=== PATIENT | female | born 1930 | race Caucasian/White ===

== ENCOUNTER 2019-08-23 12:49 | Inpatient (IN) | payer MEDICARE, OTHER ==
[~2019-08-23] VITALS: Ht 157.5 cm; Wt 56.2 kg
--- NOTE | 2019-08-23 13:05 | NUR ---
PT BIB PA WITH A C/O LT HIP PAIN S/P UNWITTNESSED FALL AT FACILITY. PT HIS HER LLE BENT AND C/O PAIN WITH STRAIGHTENING. PT HAS A DEFORMITY AT LT HIP WITH SLIGHT ECCHYMOSIS NOTED. PT WAS PLACED ON THE MONITOR AND POX. PT IS IN A GOWN.
--- NOTE | 2019-08-23 13:13 | NUR ---
18G IV STARTED IN LAC. BLOOD WAS DRAWN AND SENT TO LAB.
--- NOTE | 2019-08-23 13:19 | NUR ---
DR GUPTA CALLED RE: THIS PT.
[2019-08-23 13:29] LABS: BASOPHILS # (AUTO) 0.1 /CMM (0.0-0.2); BASOPHILS % (AUTO) 1.2 % (0.0-2.0); EOSINOPHILS % (AUTO) 1.7 % (0.0-6.0); HEMATOCRIT 34 % (33-45); HEMOGLOBIN 11.2 g/dL (11.5-14.8); LYMPHOCYTES % (AUTO) 12.6 % (20.0-44.0); MEAN CORPUSCULAR HGB CONC 33 g/dl (31.0-36.0); MEAN CORPUSCULAR VOLUME 92 fL (82-100); MONOCYTES # (AUTO) 0.6 /CMM (0.1-1.30); MONOCYTES % (AUTO) 6.9 % (2.0-12.0); NEUTROPHILS # (AUTO) 6.4 /CMM (1.8-8.9); NEUTROPHILS % (AUTO) 77.6 % (43.0-81.0); PLATELET COUNT (AUTO) 399 /CMM (150-450); RED BLOOD CELL COUNT(AUTO) 3.72 MIL/uL (4.0-5.2); WHITE BLOOD COUNT (AUTO) 8.3 K/uL (4.3-11.0)
[2019-08-23 13:38] LABS: CALCIUM, SERUM 8.7 mg/dL (8.5-10.1); CREATININE 0.8 mg/dL (0.6-1.3); POTASSIUM 3.7 mmol/L (3.5-5.1)
[2019-08-23 13:44] LABS: ALBUMIN 3.3 g/dL (3.4-5.0); BILIRUBIN,DIRECT 0.1 mg/dL (0.0-0.2); BILIRUBIN,TOTAL 0.6 mg/dL (0.2-1.0); TOTAL PROTEIN, SERUM 6.6 g/dL (6.4-8.2)
[2019-08-23] MEDS ORDERED: ONDANSETRON HCL/PF 4 MG/2 ML VIAL ONE (14:10)
[2019-08-23] MEDS ORDERED: MORPHINE SULFATE INJ 2 MG/ML DISP.SYRIN ONE ×2 (14:10→19:52)
--- NOTE | 2019-08-23 14:12 | NUR ---
PT REC'D MEDICATION ORDERED.
--- NOTE | 2019-08-23 14:18 | NUR ---
PERI INSPECTOR RETURNED MATERIALS, AT THE BEDSIDE FOR XRAY
--- NOTE | 2019-08-23 14:18 | NUR ---
EKG IN PROGRESS AT THE BEDSIDE.
[2019-08-23] MEDS ORDERED: ONDANSETRON HCL/PF 4 MG/2 ML VIAL IVP ONE (14:30)
[2019-08-23] MEDS ORDERED: MORPHINE SULFATE INJ 2 MG/ML DISP.SYRIN IV ONE ×2 (14:30→20:00)
--- NOTE | 2019-08-23 14:47 | NUR ---
CALLED OFFICE IF JASON KHAN MD
--- NOTE | 2019-08-23 14:50 | NUR ---
PER ADMITTING PT HAS [facility] INSURANCE, SPOKE TO DR CANDY ZAVALETA TO TRANSFER PT
--- NOTE | 2019-08-23 14:57 | NUR ---
MED RECON DONE, PT CAME FROM [facility] PHONE #[phone] FAX [phone]
[2019-08-23] MEDS ORDERED: ACET325T53 PO (15:00)
[2019-08-23] MEDS ORDERED: QUET25TA PO (15:00)
--- NOTE | 2019-08-23 15:39 | NUR ---
ROOM ASSIGNED= 310-1
--- NOTE | 2019-08-23 16:05 | NUR ---
REPORT GIVEN TO ALFIE. PT AWAITING TRANSFER TO FLOOR.
--- NOTE | 2019-08-23 16:40 | NUR ---
GAVE MOVESHEET TO ADMITTING FOR INSURANCE AUTH Addendum: 08/23/19 at 1951 by VERO GAVE *CLINICALS* TO ADMITTING
--- NOTE | 2019-08-23 17:00 | NUR ---
MONAE INSERTED. APPROX 10ML YELLOW, CLOUDY, URINE OUTPUT NOTED.
--- NOTE | 2019-08-23 17:10 | NUR ---
PT APPEARS TO BE RESTING COMFORTABLY WITH NO S/S OF PAIN OR DISTRESS.
--- NOTE | 2019-08-23 17:18 | NUR ---
SPOKE TO COLORING CHECKER BASIL. LEFT A CONTACT # [phone]. AWAITING OTHRO CONSULT CALL BACK.
--- NOTE | 2019-08-23 17:18 | NUR ---
PER THEA GRACIA, MUST OBTAIN ORTHO CONSULT TO R/O SURGERY BEFORE ADMITTING PT TO [facility] UNDER DR CASAREZ
--- NOTE | 2019-08-23 17:19 | NUR ---
PAGED DR YE
--- NOTE | 2019-08-23 17:35 | NUR ---
PT REC'D WARM BLANKETS. PT IS C/O HIP PAIN.
--- NOTE | 2019-08-23 17:47 | NUR ---
CALLING DR GUPTA RE: PT BEING ADMITTED HERE.
--- NOTE | 2019-08-23 18:04 | NUR ---
CALLED DR CASAREZ, , LEFT VOICEMAIL
--- NOTE | 2019-08-23 18:08 | NUR ---
DR CASAREZ SPEAKING WITH DR RONDON, WILL ACCEPT PT ADMISSION UPON [facility] AUTHORIZATION ONLY
--- NOTE | 2019-08-23 18:10 | NUR ---
DR RONDON IS SPEAKING TO DR CASAREZ.
--- NOTE | 2019-08-23 18:13 | NUR ---
SPOKE TO HEAD BUTLER BASIL, WAS INFORMED THAT PATIENT WILL BE TRANSFERED TO [facility].
--- NOTE | 2019-08-23 18:29 | NUR ---
URINE SAMPLE OBTAINED AND SENT TO LAB.
[2019-08-23 18:34] LABS: APPEARANCE,URINE Cloudy (CLEAR); BILIRUBIN,URINE Negative (NEGATIVE); BLOOD, URINE Moderate Ery/uL (NEGATIVE); COLOR,URINE Yellow (YELLOW); KETONES,URINE Negative (NEGATIVE); LEUKOCYTE ESTERASE ,URINE Large (NEGATIVE); NITRITE, URINE Positive (NEGATIVE); PH,URINE 6.5 (5.0-8.0); PROTEIN,URINE 100 mg/dl (NEGATIVE); UGLUCOSE Negative (NEGATIVE)
[2019-08-23 19:02] LABS: BACTERIA,URINE 3+ /HPF (None Seen); SQUAMOUS EPITHELIAL CELL,UR Few /HPF (None Seen); WBC,URINE 51-80 /HPF (0-3)
[2019-08-23 19:03] LABS: MUCUS,URINE Many /LPF (None Seen)
--- NOTE | 2019-08-23 19:20 | NUR ---
PT ACCEPTED TO [facility] BY DR CLEARY, ROOM 67. # FOR REPORT [phone]. [facility] ETA 60-90 MINUTES.
--- NOTE | 2019-08-23 19:32 | NUR ---
PT WAS PULLING OFF MONITOR LEADS AND PULSE OX. PT'S GOWN WAS SLIGHTLY DAMP SO PT WAS CHANGED. NEW DIAPER PLACED ON PT AND CHUX PUT UNDER THE PT. PT WAS ADJUSTED IN BED AND PUT BACK ON THE MONITOR.
--- NOTE | 2019-08-23 19:40 | NUR ---
CALLED [facility], PAGED FLORENCIA
--- NOTE | 2019-08-23 19:42 | NUR ---
CALLING REPORT TO [facility]. PT IS GOING TO ROOM #67
--- NOTE | 2019-08-23 19:50 | NUR ---
REPORT GIVEN TO TIESHA WILKINSON AT [facility]. PT IS GOING TO EMG [address], [address].
[2019-08-23] MEDS ORDERED: CEFTRIAXONE 1GM BAG (ER ONLY) 50 ML IV ONE ×2 (19:52→20:00)
--- NOTE | 2019-08-23 19:57 | NUR ---
PT IS NOW GOING TO MS 310-1. ACCEPTED BY DR DON.
--- NOTE | 2019-08-23 19:58 | NUR ---
CALLED LAB RE: BLOOD CULTURE DRAW.
--- NOTE | 2019-08-23 19:59 | NUR ---
CALLING REPORT TO MS NURSE.
--- NOTE | 2019-08-23 20:03 | NUR ---
WILL CALL BACK FOR REPORT.
--- NOTE | 2019-08-23 20:05 | NUR ---
PER MITRA RN/CHG 3RD FLOOR. PT CAN BE BROUGHT UP AND BEDSIDE REPORT GIVEN.
--- NOTE | 2019-08-23 20:07 | NUR ---
MS RN OPEN NOTES RECEIVED PATIENT VIA GURSHYLA. PATIENT ORIENTED TO ROOM. ON RA, NO SOB/ ACUTE RESPIRATORY DISTRESS NOTED. NO COMPLAINTS OF PAIN AT THE MOMENT. BED IS IN LOWEST LOCKED POSITION WITH SIDE RAILS UP X3, SEMI FOWLERS. CALL LIGHT IS WITHIN REACH. WILL CONTINUE TO MONITOR.
[2019-08-23] MEDS ORDERED: Z GUARD REMEDY 2 OZ OINT TP PRN (20:30)
[2019-08-23] MEDS ORDERED: ONDANSETRON HCL/PF 4 MG/2 ML VIAL IVP PRN (20:30)
[2019-08-23] MEDS ORDERED: MAG HYDROX/AL HYDROX/SIMETH 30 ML UDC PO PRN (20:30)
[2019-08-23] MEDS ORDERED: ACETAMINOPHEN 325 MG TABLET PO PRN (20:30)
[2019-08-23] MEDS ORDERED: MAGNESIUM HYDROXIDE 30 ML UDC PO PRN (20:30)
[2019-08-23 21:00] VITALS: BP 150/87
--- NOTE | 2019-08-23 21:00 | NUR ---
RN NOTES VTE SCORE >5, CHEMICAL PROPHYLAXIS NOT ORDERED UPON ADMISSION. PER DR DON'S NOTES, "Anemia: Likely acute on chronic with expected blood loss from this injury, monitor hemoglobin, transfuse as needed." WILL CONTINUE TO MONITOR AND INFORM DAY SHIFT.
--- NOTE | 2019-08-23 21:40 | NUR ---
RN NOTES PATIENT REFUSED SKIN ASSESSMENT ON BACK AND SACRUM. PATIENT WAS IN PAIN DUE TO FRACTURE AND WAS CONFUSED. HOWEVER WAS ABLE TO DO SKIN ASSESSMENT ON LEGS AND ARMS.. TOOK PICTURES AND ADDED TO CHART.
[2019-08-23 22:00] VITALS: BP 150/87
[2019-08-24] MEDS: MORPHINE SULFATE INJ 2 MG/ML DISP.SYRIN IV PRN (01:38)
[2019-08-24 06:27] LABS: HEMOGLOBIN 9.8 g/dL (11.5-14.8); WHITE BLOOD COUNT (AUTO) 7.3 K/uL (4.3-11.0)
[2019-08-24 06:28] LABS: BASOPHILS % (AUTO) 0.6 % (0.0-2.0); EOSINOPHILS % (AUTO) 0.8 % (0.0-6.0); HEMATOCRIT 30 % (33-45); LYMPHOCYTES % (AUTO) 13.8 % (20.0-44.0); MEAN CORPUSCULAR HGB CONC 33 g/dl (31.0-36.0); MEAN CORPUSCULAR VOLUME 91 fL (82-100); MONOCYTES # (AUTO) 0.5 /CMM (0.1-1.30); MONOCYTES % (AUTO) 6.7 % (2.0-12.0); NEUTROPHILS # (AUTO) 5.7 /CMM (1.8-8.9); NEUTROPHILS % (AUTO) 78.1 % (43.0-81.0); PLATELET COUNT (AUTO) 372 /CMM (150-450)
--- NOTE | 2019-08-24 07:06 | NUR ---
RN CLOSE NOTES PATIENT IS LAYING IN BED. A/O X1. ON RA, SATURATING AT 97%, NO SOB/ ACUTE RESPIRATORY DISTRESS NOTED. NO COMPLAINTS OF PAIN AT THE MOMENT. IV ON L AC IS PATENT AND INTACT. BED IS IN LOWEST LOCKED POSITION WITH SIDE RAILS UP X3, SEMI FOWLERS. CALL LIGHT IS WITHIN REACH. WILL ENDORSE TO AM NURSE.
[2019-08-24 07:45] LABS: CALCIUM, SERUM 8.3 mg/dL (8.5-10.1); CREATININE 0.8 mg/dL (0.6-1.3); POTASSIUM 4.3 mmol/L (3.5-5.1)
[2019-08-24 08:00] VITALS: BP 149/79
--- NOTE | 2019-08-24 08:30 | NUR ---
dr. christiansen in to see pt. npo after breakfast.
[2019-08-24] MEDS: QUETIAPINE FUMARATE 25 MG TABLET PO SCH (09:00)
[2019-08-24 09:26] LABS: THYROID STIMULATING HORMONE 1.737 uIU/mL (0.358-3.74)
[2019-08-24] MEDS: IV NS 0.9% 1,000 ML IV PRN ×2 (09:51→18:04)
[2019-08-24] MEDS: NITROGLYCERIN 30 GM TUBE TP SCH ×2 (09:52→20:56)
[2019-08-24] MEDS: PANTOPRAZOLE 40 MG VIAL IV SCH (09:52)
[2019-08-24 10:06] LABS: PHOSPHORUS 4.4 mg/dL (2.5-4.9)
--- NOTE | 2019-08-24 10:54 | NUR ---
WOUND CARE CONSULT: PT PRESENTS WITH DISCOLORATION TO UPPER AND LOWER EXTREMITIES AND SACRAL STAGE 2 ULCER WHICH EXTENDS TO RT BUTTOCK, PRESENT ON ADMISSION. RECOMMENDATIONS MADE FOR SKIN PROTECTION AND WOUND CARE. DISCUSSED WITH NURSING STAFF. ISOFLEX LOW AIRLOSS BED TO BE PLACED WHEN AVAILABLE. PT NOTED TO BE RUBBING HER HEELS ON BED. BLANCHABLE REDNESS NOTED TO HEELS. PILLOW PLACED FOR HEEL FLOATING. PT IS AGITATED AND COMBATIVE AT TIMES. WILL SEE PRN. IN AGREEMENT WITH PLAN OF CARE. CURRENT NOLVIA SCORE IS 13.
[2019-08-24] MEDS ORDERED: HYDROGEL DRESSING 90 GM TUBE TP PRN (11:00)
--- NOTE | 2019-08-24 11:30 | NUR ---
dr. vargas contacted with elevated troponin.
--- NOTE | 2019-08-24 12:03 | NUR ---
SW Consult was requested by to check the pts DPOA. Pt is a 89 year old female who has dementia and was admitted for a urinary tract infection and a fractured femur. STEFAN called the number of the person of contact on the facesheet and spoke to Jagjit Laws ([phone]) who stated that he is the pts DPOA. He stated that he only has power of title attorney over the pts finances and does not have any ability to make decisions regarding her medical care. STEFAN stated that she would like to request the paperwork but he stated that he was too busy at the moment at work. SW provided him with the fax number for when he is more available.
--- NOTE | 2019-08-24 12:45 | NUR ---
REPORT PER JUS PERLA PT. TO POSSIBLY BE TRANSFERRED TO ANOTHER ACUTE FACILITY FOR SURGERY.REMAINS NPO AND IV INFUSING.F/C TO GRAVITY DRAINAGE.
[2019-08-24] MEDS: HYDROGEL DRESSING 90 GM TUBE TP SCH (15:44)
[2019-08-24 16:00] VITALS: BP 125/59
--- NOTE | 2019-08-24 16:16 | NUR ---
PT. PULLED NAME BAND AND IV OUT,VERY CONFUSED.
--- NOTE | 2019-08-24 16:30 | NUR ---
iv restart lt. forearm.322 angio. Addendum: 08/24/19 at 2013 by JEMMA SALCIDO RN #22 angio.
--- NOTE | 2019-08-24 17:55 | NUR ---
call from [facility] with instructions for transfer to [facility].dc paperwork started.
--- NOTE | 2019-08-24 18:45 | NUR ---
call to [facility] to give report.rn unavailable,instructed to call back.
--- NOTE | 2019-08-24 19:15 | NUR ---
rn calling [facility] back to give report on transferring pt.on hold for 10 minutes,now [facility] here and informed pt. not ready yet. ambulance [facility] to be here at 2030 pm.racing driver states will call her dispatcher and get further instructions.pt at this time endorsed to isaias abarca.
[2019-08-24 20:00] VITALS: BP 98/75
[2019-08-24] MEDS ORDERED: CEFTRIAXONE 1 G in IV D5W 50 ML IV SCH (20:00)
--- NOTE | 2019-08-24 20:05 | NUR ---
MS/RN NOTES PATIENT IN BED, RESPIRATIONS EVEN AND UNLABORED, REQUIRE EXTENSIVE ASSISTANCE IN ALL ADLS WITH LEFT HIP FX, NO GUARDING OR GRIMACE BUT REQUIRE REORIENTATION FOR COOPERATION WITH CARE, MONAE DRAINING MODERATE AMOUNT OF YELLOW COLORED URINE,IV FLUID AND SITE PATENT. WILL MONITOR.
--- NOTE | 2019-08-24 20:14 | NUR ---
MS/RN OPENING NOTES RECEIVED PATIENT IN BED AWAKE AND ABLE TO COOPERATE WITH REORIENTATION, PATIENT RESPIRATIONS EVEN AND UNLABORED, ON ROOM AIR AND MD CASAREZ WAS CONTACTED REGARDING CLARIFICATION OF TRANSFER ORDER TJAT PATIENT DAUGHTER AARON HAVE DISCUSSED WITH [facility] AND AUTHORIZED [facility]SF[facility] AND REFUSE [facility] PLANNED BY ARANZA HERNANDEZ, INFORMED CHARGE NURSE AND WILL F/U WITH CM BY DAMEON, TO BE PLACED WITH DIET ORDER AND NOT NPO FOR NOW. WILL MONITOR.
--- NOTE | 2019-08-24 20:42 | NUR ---
FOLLOWED UP WITH AMBULANCE AND ER [facility] CHARGE NURSE ROMEL THAT PATIENT IS NOT GOING FAMILY DAUGHTER AARON AND AWARE DAUGHTER REFUSE HER MOM BE TRANSFERED TO [facility]
--- NOTE | 2019-08-24 23:40 | NUR ---
FRANCISCO CALLED AND FOLLOWED UP ON SAID TRANSFER TO [facility], WAS MADE AWARE THAT PATIENT FAMILY REFUSE TO HAVE PATIENT BE TRANSFERED THERE AND WOULD PREFER A DIFFERENT HOSPITAL AGREED UPON WITH ANOTHER [facility] ORDERING BOX OPERATOR COMMUNICATED AT 3PM BUT UNABLE TO STATE NAME, MD CASAREZ WAS MADE AWARE EARLIER AND TO HAVE ARRANGEMENTS BE DONE FOR HOSPITAL OF CHOICE AGREED BY FAMILY EITHER DURING THE NIGHT OR IN AM . FRANCISCO SAID WILL BE FOLLOWED UP BY INCOMING ORDERING BOX OPERATOR IN AM.
[2019-08-25] VITALS (7 sets, daily range): BP systolic 155–187; BP diastolic 83–94
[2019-08-25] MEDS: IV NS 0.9% 1,000 ML IV PRN ×2 (02:11→09:54)
--- NOTE | 2019-08-25 06:31 | NUR ---
310-1 MS/RN NOTES PATIENT ABLE TO SLEEP FEW HOURS,ALERT X1. ATTENDED TO ALL NEEDS, REPOSITIONED FOR COMFORT, MONITORED FOR SAFETY. BED LOCKED, CALL LIGHTS WITHIN REACH. RESPIRATIONS EVEN AND UNLABORED,EXTENSIVE ASSISTANCE WITH ALL ADLS, IV FLUID AT 125 ML BEING INFUSED WILL ENDORSE TO AM RN FOR JET.
--- NOTE | 2019-08-25 06:35 | NUR ---
MS/RN NOTES PATIENT REFUSED TO HAVE BLOOD DRAWN, UNABLE TO UNDERSTAND IMPORTANCE OF BLOOD TEST,COMBATIVE BEHAVIOR.
[2019-08-25 06:44] LABS: BASOPHILS % (AUTO) 0.6 % (0.0-2.0); EOSINOPHILS % (AUTO) 1.9 % (0.0-6.0); HEMATOCRIT 30 % (33-45); LYMPHOCYTES # (AUTO) 0.8 /CMM (0.8-4.8); LYMPHOCYTES % (AUTO) 10.5 % (20.0-44.0); MEAN CORPUSCULAR HGB CONC 33 g/dl (31.0-36.0); MEAN CORPUSCULAR VOLUME 91 fL (82-100); MONOCYTES # (AUTO) 0.5 /CMM (0.1-1.30); MONOCYTES % (AUTO) 6.3 % (2.0-12.0); NEUTROPHILS # (AUTO) 6.1 /CMM (1.8-8.9); NEUTROPHILS % (AUTO) 80.7 % (43.0-81.0); PLATELET COUNT (AUTO) 337 /CMM (150-450); RED BLOOD CELL COUNT(AUTO) 3.31 MIL/uL (4.0-5.2); WHITE BLOOD COUNT (AUTO) 7.5 K/uL (4.3-11.0)
[2019-08-25 07:12] LABS: ALBUMIN 2.7 g/dL (3.4-5.0); BILIRUBIN,TOTAL 0.5 mg/dL (0.2-1.0); CALCIUM, SERUM 7.8 mg/dL (8.5-10.1); CREATININE 0.8 mg/dL (0.6-1.3); MAGNESIUM 1.8 mg/dL (1.8-2.4); PHOSPHORUS 3.2 mg/dL (2.5-4.9); POTASSIUM 3.1 mmol/L (3.5-5.1); TOTAL PROTEIN, SERUM 5.7 g/dL (6.4-8.2)
--- NOTE | 2019-08-25 08:00 | NUR ---
RN NOTES RECEIVED PATIENT IN THE BED A/O X1, NO ACUTE RESPIRATORY DISTRESS, ON ROOM AIR, PATIENT REFUSED PAIN, ALSO GETTING US LOWER LEG, AND ECHO AT THIS TIME. INFUSING NS AT 125 ML/HR ON LEFT FA INTACT, PATIENT HAS FX ON LEFT HIP, AND WOUND SACRAL AREA STAGE 2 DRESSING INTACT. F/C DRAINING LIGHT YELLOW OUTPUT, ASSIST TURN AND REPOSTION Q 2 HR. CALL LIGHT WITHIN TO REACH. CONTINUED MONITORING.
[2019-08-25] MEDS: HYDROGEL DRESSING 90 GM TUBE TP SCH (08:38)
[2019-08-25] MEDS: PANTOPRAZOLE 40 MG VIAL IV SCH (08:38)
[2019-08-25] MEDS: QUETIAPINE FUMARATE 25 MG TABLET PO SCH (08:38)
--- NOTE | 2019-08-25 08:46 | NUR ---
rn notes per hospitalist Dr Riley get TO order kdure 40 Meq x1 now order taken and carried out. also patient will transfer different hospital case management working on the case.
[2019-08-25] MEDS ORDERED: POTASSIUM CHLORIDE 20 MEQ TAB.PRT.SR PO ONE (09:00)
[2019-08-25] MEDS: NITROGLYCERIN 30 GM TUBE TP SCH (09:40)
--- NOTE | 2019-08-25 10:55 | NUR ---
rn notes get call from [facility] case management patient need covid -[address] Riley and get TO order for covid- testing. order taken and carried out.
--- NOTE | 2019-08-25 13:00 | NUR ---
rn notes BP 168/94, P-73, NOTIFIED Dr CASAREZ, AND GET TO ORDER NORVASC 5 MG PO DAILY, FIRST DOSE NOW, ORDER TAKEN AND CARRIED OUT.
[2019-08-25] MEDS ORDERED: AMLODIPINE BESYLATE 5 MG TABLET PO SCH (13:30)
--- NOTE | 2019-08-25 14:40 | NUR ---
rn notes covid-19 testing taken.
[2019-08-25] MEDS: MORPHINE SULFATE INJ 2 MG/ML DISP.SYRIN IV PRN (15:26)
--- NOTE | 2019-08-25 15:26 | NUR ---
RN NOTES ADMINISTERED MORPHINE SULFATE 2 MG/ML IV PUSH FOR LEFT HIP PAIN 09/22 PER PATIENT REQUEST, V/S TAKEN BP 168/90, P-73, R-18, CONTINUED MONITORING.
--- NOTE | 2019-08-25 17:00 | NUR ---
RN NOTES CALLED HOSPITALIST Dr CASAREZ BECAUSE OF PATIENT BP STILL HIGH 175/87, P-81, R-18, AND GET ORDER CLONIDINE 0.1 MG PO PRN Q6HR, ORDER TAKEN AND CARRIED OUT. PATIENT CONFUSED UNDRESS SELF, REMOVED IV ACCESS X2. ALSO PATIENT WILL [facility] FOR CONTINUATION OF CARE.
[2019-08-25] MEDS ORDERED: Potassium Chloride 20 MEQ in IV D5/0.45 NACL 1,000 ML IV PRN (17:30)
[2019-08-25] MEDS ORDERED: CLONIDINE HCL 0.1 MG TABLET PO PRN (17:30)
--- NOTE | 2019-08-25 17:38 | NUR ---
RN NOTES ADMINISTERED CLONIDINE 0.1 MG PO PRN FOR BP 175/87, P-81.
--- NOTE | 2019-08-25 18:57 | NUR ---
rn notes rechecked bp 187/92, p-81, r-19, ambulance refused to take patient at this time, called Dr Riley and get new order Ativan 0.5 mg/ml im x1 now order taken and carried out.
--- NOTE | 2019-08-25 19:00 | NUR ---
RN NOTES PATIENT CONFUSED NO ACUTE RESPIRATORY DISTRESS, ENDORSED ONCOMING NURSE FOLLOW PLAN OF CARE.
--- NOTE | 2019-08-25 19:23 | NUR ---
MS RN NOTES PATIENT IN BED, AWAKE, ALERT AND ORIENTED X 1. PT CONFUSED. BREATHING EVEN AND UNLABORED ON ROOM AIR. SHOWS NO SIGNS OF ACUTE RESPIRATORY DISTRESS, NO ACUTE PAIN. F/C ITS CLEAN DRY AND INTACT. FLOWING YELLOW CLEAR URINE. NO IV IN PLACE. PT WAS SET FOR DISCHARGE BUT BP WAS TOO HIGH. SAFETY PRECAUTIONS IN PLACE. BED IN LOWEST POSITION, LOCKED, AND CALL LIGHT KEPT WITHIN REACH. WILL CONTINUE TO MONITOR.
[2019-08-25] MEDS ORDERED: LORAZEPAM INJ 2 MG/ML VIAL IM ONE (19:30)
[2019-08-25] MEDS ORDERED: ALPRAZOLAM 0.25 MG TABLET PO PRN (22:30)
--- NOTE | 2019-08-25 22:30 | NUR ---
MS RN NOTES RECEIVED CALL FROM DR. CASAREZ. ORDER .25MG OF XANAN PO PRN Q6H FOR ANXIETY. GIVEN AT 2233. WILL CONTINUE TO MONITOR.
--- NOTE | 2019-08-25 23:45 | NUR ---
MS RN NOTES PATIENT LEFT FLOOR WITH AMBULANCE AT 2345.
[2019-08-26] MEDS ORDERED: SOD FERRIC GLUC 125 MG in IV NS 0.9% 100 ML IV SCH (14:00)
== END 2019-08-25 23:45 | disposition short-term general hospital (02) | DRG 536 ==
LOC: ER 12:58 → MED 19:41
PROVIDERS: ADMIT Internal Medicine; ATTEND Internal Medicine
DX: S72.142A Displaced intertrochanteric fracture of left femur, initial encounter for closed fracture (principal); N39.0 Urinary tract infection, site not specified; E44.0 Moderate protein-calorie malnutrition; W18.30XA Fall on same level, unspecified, initial encounter; F03.90 Unspecified dementia, unspecified severity, without behavioral disturbance, psychotic disturbance, mood disturbance, and anxiety; E86.0 Dehydration; E88.09 Other disorders of plasma-protein metabolism, not elsewhere classified; D50.9 Iron deficiency anemia, unspecified; I35.0 Nonrheumatic aortic (valve) stenosis; M62.50 Muscle wasting and atrophy, not elsewhere classified, unspecified site; Y93.9 Activity, unspecified; Y92.89 Other specified places as the place of occurrence of the external cause; L89.159 Pressure ulcer of sacral region, unspecified stage; Z66 Do not resuscitate; Z68.22 Body mass index [BMI] 22.0-22.9, adult; B96.20 Unspecified Escherichia coli [E. coli] as the cause of diseases classified elsewhere
CPT/HCPCS: 36415; 71045-TC; 73502; 80048-TC; 80053-TC; 80076-TC; 81000-TC; 82728-TC; 83540-TC; 83605-TC; 83735-TC; 84100-TC; 84439-TC; 84443-TC; 84484-TC; 85025-TC; 85730-TC; 86850-TC; 87040-TC; 87081-TC; 87086-TC; 87186-TC; 93307-TC; 93971-TC; A6248; C9113; G0378; J0696; J2060; J2270; J2405; J3480; J3490; J7030; J7060; U0003-CS